=== PATIENT | female | born 1980 | race Caucasian/White ===

== ENCOUNTER 2017-04-25 08:17 | Emergency (ER) | payer BC ==
[~2017-04-25] VITALS: Ht 170.2 cm; Wt 117.9 kg
[~2017-04-25 08:17] MED LIST: FERROUS SULFAT325 M2 PO; HYDROXYZINE HCL25 M1 PO; MEDROL 4MG. DOSE4 MG PO; METFORMIN 500M500 M1 PO; MOTRIN 400MG.400 MG PO; OMEPRAZOLE DR20 MG PO; PERCOCET 5/3251 EACH PO; TRAMADOL 50MG T50 MG PO
[2017-04-25] MEDS ORDERED: LISINOPRIL10 MG PO (08:24)
[2017-04-25] MEDS ORDERED: BISOPROLOL 5MG T5 MG PO (08:24)
--- NOTE | 2017-04-25 08:42 | Emergency Room Report ---
History of Present Illness Time Seen by MD Aleman Presenting Problem in Triage Pt arrived:Walked Presenting Problem:PT C/O RIGHT KNEE PAIN THAT STARTED A COUPLE OF DAYS AGO. ADVISES SHE IS UNABLE TO BEND IT. NO KNOWN INJURY Onset of symptoms date/time:/ or onset unknown for:MEDICAL HX UNKNOWN Treatment Prior to Arrival: [employer] Provided by: Sepsis Risk Assessment: Temp: 98.4 B/P: 137/55 MAP: 82 Pulse: 117 Resp: 16 Recent fever? N Clinical Suspician of Infection? N Mental Status: 1 - Regular (Normal Baseline) Sepsis Risk:Low Sepsis Risk Have you (or family members/close friends) recently traveled outside the [place]? N If Yes, where/when: Have you had exposure to infectious disease within the past month? N TB? Other Patient struck her knee against a door four days ago, and also reports walking last week while shopping for ten hours one day then six hours the next day. She did not experience pain after shopping, but did experience pain to the right medial knee after the traumatic event. She has had minimal relief with Ibuprofen yesterday. No calf pain or weakness. Hurts to flex knee and bear weight. No numbness or fever, has a little swelling but no redness. ALLERGIES Coded Allergies: acetaminophen (From LORTAB) (Severe, SZ 02/15/16) hydrocodone (From LORTAB) (Severe, SZ 02/15/16) Home Medications Reported Medications Lisinopril 10 MG PO DAILY #60 BISOPROLOL FUMARATE (Bisoprolol 5MG) 2.5 MG PO DAILY #30 History Medical History General CAD? No Angina: No LA: No Hypertension? Yes Hyperlipidemia? No CHF? No DVT? No PE? No COPD? No Asthma? No Anemia? No GERD? No Gastric ulcers? No GI Bleed? No Hernia? No Thyroid Problems? No Hypothyroidism? No CVA? No Seizures? No Diabetes? No Insulin Dependent: No Insulin Pump: No Home FSBS? Yes Renal Insuffiency? No End Stage Renal Disease? No UTI? No Stones? No BPH? No GB Disease: No Nephritic Syndrome? No Asplenia? No Hepatitis? No Sickle Cell Disease? No Arthritis? No Migraines? No Cataracts? No Glaucoma? No MRSA? No HIV? No TB? No Anxiety? No Depression? No Cancer? No Site: N More? No Immunization Hx DT/Tetanus > 10 Years Ago Flu Refused Pneumonia Refuses Surgical Hx Previous Surgery?Y X 1 TUBAL Exploratory Laparoscopy POS HYSTERECTOMY CAPTAIN FIRE PREVENTION BUREAU Hx LMP N/A Family History Family Hx Diabetes No CAD Yes Hypertension No Hyperlipidemia No Cancer Yes TB No Social History Smoking Hx Smoker: Current Every Day Smoker Tobacco: Yes Type Cigarettes Packs/day < 1 Pack Alcohol Alcohol: No Review of Systems All Other Systems Reviewed and Negative Musculoskeletal see HPI Physical Exam Vital Signs Vital Signs Date Time Temp Pulse Resp B/P Pulse O2 O2 Flow FiO2 Ox Delivery Rate 04/25 1006 16 04/25 0821 98.4 117 16 137/55 98 General Appearance normal appearance, WD/WN, no apparent distress Eye Exam - bilateral eye normal exam, bilateral eye PERRL, bilateral eye EOMI Respiratory Status Yes: trachea midline. No: respiratory distress. Cardiovascular normal peripheral pulses Extremities normal range of motion, normal capillary refill, no calf tenderness, no pedal edema, inflammation, swelling, A little bit of edema to right knee, but no ballottement. Pain is reproducible by palpation of MCL, with pain extending to medial thigh with palpation of muscle bed of adductor muscle and tendon. No laxity. Negative anterior drawer sign. No pain with varus or valgus maneuvers. No erythema. Popliteal fossa w/o edema or cyst. Strong popliteal pulse. Neg Obey's. Limb is n/v intact. No ecchymosis, deformities, or stepoffs noted. Toes are well perfused. FROM right ankle and all toes. Strength 5 Upper Ext (L), 5 Upper Ext (R), 5 Lower Ext (L), 5 Lower Ext (R) Neurologic alert, normal exam, no motor/sensory deficits, oriented x 3 Glascow Coma Scale Glascow Coma Scale Response Value EYE response: 4 Spontaneously 4 MOTOR response: 6 OBEYS 6 VERBAL response: 5 Oriented & Converses 5 Total 15 Skin intact, normal color, warm/dry Medical Decision Making LABS/Meds/Orders Pt receiving controlled substance in ED? No Results/Orders Current Medication Orders Sig/Rosalina Start time Last Medication Dose Route Stop Time Status Admin Ketorolac 60 MG ONCE ONE 04/25 1015 DC 04/25 Tromethamine IM 04/25 1016 1006 Ketorolac 0 .STK-MED ONE 04/25 1004 DC Tromethamine .ROUTE XRAY/CT/US XRAY/CT/US 1 XRAY knee XR interpretation by reviewed by me Xray Results abnormal (?avulsion medial femur?old) XRAY/CT/US 2 XRAY knee XR interpretation by reviewed by me (final report now available) Xray Results abnormal, calcification; evidence of old MCL injury; small effusion. Progress ED Progress Notes 1 Date 04/25/17 Time 0947 ED Progress Notes 2 Date 04/25/17 Time 1038 Comment Awaiting final radiology reading. Positive pain relief with Toradol. Departure Departure Time of Disposition 1000 Disposition DC Home or Self Care(routine) Clinical Impression Primary Impression: Right medial knee pain Condition STABLE Referrals Carroll Tate MD Patient Instructions DI for Knee Pain Additional Instructions Rx Naproxen, wear a knee brace for support and comfort, see Dr. Tate, orthopedics, for follow up in two to seven days for recheck. Discharge Counseling Counseled pt/family regarding diagnosis, test results, medications/RX, home care, follow up needs Prescriptions Current Visit Scripts NAPROXEN (NAPROXEN 500MG TAB) 500 MG PO BIDP PRN pain, swelling #20 TAB ED Critical Care Critical Care No at 1101
--- OUTSIDE RECORDS SUMMARY | 2017-04-25 08:46 | External Medical Summary Rpt | CCD ---
Demographics Preferred Language Uzbek Marital Status Unknown Uatsdin Affiliation Unknown Race Unknown Ethnic Group Unknown Author Author , LEÓN TRAORE Address Unknown Phone Immunization No patient found.
--- OUTSIDE RECORDS SUMMARY | 2017-04-25 08:46 | External Medical Summary Rpt | CCD ---
Author Author [employer] Organization [employer] Address Unknown Phone Unavailable Purpose Continuity of Care Document - through 2016
--- OUTSIDE RECORDS SUMMARY | 2017-04-25 08:46 | External Medical Summary Rpt | CCD ---
Demographics Preferred Language Mongolian Marital Status Unknown Mandaen Affiliation Unknown Race Unknown Ethnic Group Unknown Author Author , LEÓN TRAORE Address Unknown Phone Immunization No patient found.
--- OUTSIDE RECORDS SUMMARY | 2017-04-25 08:46 | External Medical Summary Rpt | CCD ---
Author Author , LEÓN TRAORE Address Unknown Phone [email or web address] Purpose Continuity of Care Document - 02-05-2016 through 2016 Problems Code Diagnosis DOS Provider Status F41.9 Anxiety disorder, unspecified R07.89 Other chest pain R20.2 PARESTHESIA OF SKIN R20.9 UNSPECIFIED DISTURBANCE S OF SKIN SENSATION R73.9 HYPERGLYCEM IA, UNSPECIFIED
--- OUTSIDE RECORDS SUMMARY | 2017-04-25 08:46 | External Medical Summary Rpt | CCD ---
Author Author , LEÓN TRAORE Address Unknown Phone [email or web address] Purpose Continuity of Care Document - 02-05-2016 through 2016 Problems Code Diagnosis DOS Provider Status F41.9 Anxiety disorder, unspecified R07.89 Other chest pain R20.2 PARESTHESIA OF SKIN R20.9 UNSPECIFIED DISTURBANCE S OF SKIN SENSATION R73.9 HYPERGLYCEM IA, UNSPECIFIED
--- OUTSIDE RECORDS SUMMARY | 2017-04-25 08:47 | External Medical Summary Rpt ---
Author Author LEÓN Alicia, [employer] Organization [employer] Address Unknown Phone Unavailable Results Auto Diff Observa Value Referen Units Interpr Notes Date tion ce etation Range Neutrop 73.0 No % No No Sep 11 hils informa informa informa 2016 [#/volu tion in tion in tion in 7:23 PM me] in source source source Blood data data data by Automat ed count Lymphoc 21.5 No % No No Sep 11 ytes informa informa informa 2016 [#/volu tion in tion in tion in 7:23 PM me] in source source source Blood data data data by Automat ed count Monocyt 5.1 No % No No Sep 11 es informa informa informa 2016 [#/volu tion in tion in tion in 7:23 PM me] in source source source Blood data data data by Automat ed count Eos 0.0 No % No No Sep 11 Percent informa informa informa 2016 tion in tion in tion in 7:23 PM source source source data data data Baso 0.4 No % No No Sep 11 Percent informa informa informa 2016 tion in tion in tion in 7:23 PM source source source data data data Neut# 8.6 1.8 - x10(3)/ High No Sep 11 7.7 mcL informa 2016 tion in 7:23 PM source data Lymph# 2.5 0.6 - x10(3)/ No No Sep 11 4.8 mcL informa informa 2016 tion in tion in 7:23 PM source source data data [place]# 0.6 0.0 - x10(3)/ No No Sep 11 1.3 mcL informa informa 2016 tion in tion in 7:23 PM source source data data Eos# 0.0 0.0 - x10(3)/ No No Sep 11 0.5 mcL informa informa 2016 tion in tion in 7:23 PM source source data data Baso# 0.0 0.0 - x10(3)/ No No Sep 11 0.2 mcL informa informa 2016 tion in tion in 7:23 PM source source data data CBC Observa Value Referen Units Interpr Notes Date tion ce etation Range LEUKOCY 11.8 4.0 - x10(3)/ High No Sep 11 FELIZ 11.0 mcL informa 2016 tion in 7:23 PM source data Erythro 4.52 3.80 - x10(6)/ No No Sep 11 cytes 5.10 mcL informa informa 2016 [#/volu tion in tion in 7:23 PM me] in source source Blood data data by Automat ed count Hemoglo 12.5 12.0 - gm/dL No No Sep 11 bin 15.6 informa informa 2016 [Mass/v tion in tion in 7:23 PM olume] source source in data data Blood Hematoc 38.7 35.7 - % No No Sep 11 rit 45.9 informa informa 2016 [Volume tion in tion in 7:23 PM source source Fractio data data n] of Blood by Automat ed count Erythro 85.5 82.5 - fL No No Sep 11 cyte 99.8 informa informa 2016 mean tion in tion in 7:23 PM corpusc source source ular data data volume [Entiti c volume] by Automat ed count Erythro 27.5 27.0 - pg No No Sep 11 cyte 34.3 informa informa 2016 mean tion in tion in 7:23 PM corpusc source source ular data data hemoglo bin [Entiti c mass] by Automat ed count Erythro 32.2 32.1 - gm/dL No No Sep 11 cyte 35.3 informa informa 2016 mean tion in tion in 7:23 PM corpusc source source ular data data hemoglo bin concent ration [Mass/v olume] by Automat ed count Erythro 15.4 11.5 - % High No Sep 11 cyte 15.0 informa 2016 distrib tion in 7:23 PM ution source width data [Ratio] by Automat ed count Platele 461 144 - x10(3)/ High No Sep 11 ts 423 mcL informa 2016 [#/volu tion in 7:23 PM me] in source Blood data by Automat ed count MPV 7.9 6.8 - fL No No Sep 11 10.8 informa informa 2016 tion in tion in 7:23 PM source source data data EK EKG 12 LEAD Observa Value Referen Units Interpr Notes Date tion ce etation Range Station No No No No Sep 11 monico ECG informa informa informa informa 2016 tion in tion in tion in tion in 6:28 PM Study\. source source source source br\St. data data data data Elihaybe th [facility] d\.br\I nterpre tive Stateme nts\.br \SINUS RHYTHM\ .br\BOR DERLINE LEFT AXIS DEVIATI ON\.br\ NO PRIOR ECG FOR COMPARI SON\.br \Electr onicall y Signed On 02-05-20 16 20:57:3 4 EDT by Geronimo Jain MD
--- OUTSIDE RECORDS SUMMARY | 2017-04-25 08:47 | External Medical Summary Rpt ---
[...] in 7:23 PM source source data data Sullivan# 0.6 0.0 - x10(3)/ No No Sep [...]
[2017-04-25] MEDS ORDERED: NAPROXEN SODIU500 MG PO (10:02)
--- NOTE | 2017-04-25 10:50 | RADIOLOGY REPORT PS360 ---
KNEE-3 VIEWS-RT HISTORY: PAIN; UNKNOWN INJURY ORDERING PHYSICIAN: Carie Humphrey MD PATIENT AGE: 36 years COMPARISON: None FINDINGS: Mild osteoarthritic changes are present involving all 3 compartments. There is increased soft tissue density in the suprapatellar region consistent with small knee joint effusion. There is a 2 cm oval bony density medial to the medial femoral condyle and could be result of prior ligamentous injury. No other significant anomalies are evident. IMPRESSION: 1. Mild osteoarthritis with small knee joint effusion. 2. Calcific density medial to the medial femoral condyle which could be result of prior ligamentous injury of the medial collateral ligament
[2017-04-25 11:12] VITALS: BP 130/64
== END 2017-04-25 11:13 | disposition home or self-care (01) ==
LOC: ER 08:17
DX: M25.561 Pain in right knee (principal); W22.8XXA Striking against or struck by other objects, initial encounter; I10 Essential (primary) hypertension